=== PATIENT | female | born 1995 | race Caucasian/White ===

== ENCOUNTER 2018-04-19 10:08 | Emergency (ER) | payer BC ==
--- NOTE | 2018-04-19 12:07 | ED ---
Throat Pain/Nasal Congestion - HPI Summary HPI Summary: 21 week patient resents with URI symptoms starting Thursday. Started off with repetitive sneezing which led into nasal discharge with congestion and sore throat. She has a mild intermittent cough which she reports is mostly from sore throat and postnasal drip. Cough is dry. Denies chest pain or shortness of breath. She has some sinus pain and pressure over her maxillary region but no candie headache or neck stiffness. She denies fevers , chills, difficulty breathing or swallowing, abdominal pain, cramping, spotting or vaginal bleeding, nausea, vomiting, diarrhea, rash. Has been snoring at night d/t nasal congestion. Admits she tried an OTC cold medication ( approved on her list of medications) - some relief while on board. Has not taken anything today. Has not had influenza vaccine. Follows w/ [facility]. - History of Current Complaint Chief Complaint: UCRespiratory Time Seen by Provider: 04/19/18 11:46 Hx Obtained From: Patient, Family/Hook Tender - male partner - Allergies/Home Medications Allergies/Adverse Reactions: Allergies Allergy/AdvReac Type Severity Reaction Status Date / Time No Known Allergies Allergy Verified 04/19/18 10:39 Home Medications: Home Medications Pnv No.95/Ferrous Fum/Folic AC [ Vitamin & Minera 28-0.8 mg] 1 tab PO [History] PMH/Surg Hx/FS Hx/Imm Hx Previously Healthy: Yes Endocrine/Hematology History: Reports: Other Endocrine/Hematological Disorders - splenectomy in 2013 Respiratory History: Denies: Hx Asthma - Surgical History Surgery Procedure, Year, and Place: spleenectomy 2013 - Immunization History Immunizations Up to Date: Yes Infectious Disease History: No Infectious Disease History: Denies: Traveled Outside the [place] in Last 30 Days - Social History Occupation: Employed Full-time - [employer] Lives: With Family Alcohol Use: None Hx Substance Use: No Substance Use Type: Reports: None Hx Tobacco Use: Yes - not currently Smoking Status (MU): Former Smoker Review of Systems Positive: Fatigue. Negative: Fever, Chills Eyes: Negative Negative: Drainage, Erythema Positive: Sore Throat, Nasal Discharge Cardiovascular: Negative Positive: Cough. Negative: Shortness Of Breath Gastrointestinal: Negative Positive: no symptoms reported Musculoskeletal: Other - generalized achiness Skin: Negative Neurological: Negative Psychological: Normal All Other Systems Reviewed And Are Negative: Yes Physical Exam Triage Information Reviewed: Yes Vital Signs On Initial Exam: Initial Vitals Temp Pulse Resp BP Pulse Ox 98.4 F 93 18 123/74 99 04/19/18 10:35 04/19/18 10:35 04/19/18 10:35 04/19/18 10:35 04/19/18 10:35 Vital Signs Reviewed: Yes Appearance: Positive: No Pain Distress, Well-Nourished, Ill-Appearing - mild - appears congested w/ mild fatigue - transitioning w/ good energy independently w /o assistance or increased fatigue Skin: Positive: Warm, Skin Color Reflects Adequate Perfusion, Dry Head/Face: Positive: Normal Head/Face Inspection Eyes: Positive: Normal, EOMI, Conjunctiva Clear. Negative: Conjunctiva Inflammed, Discharge ENT: Positive: Hearing grossly normal, Pharyngeal erythema - cobblestoning, Nasal congestion - Lt > Rt - clear mucosa, phlegm, Nasal drainage, TMs normal, Uvula midline. Negative: TM bulging, TM dull, TM red, Tonsillar swelling, Tonsillar exudate, Trismus, Muffled voice, Hoarse voice, Sinus tenderness Dental: Negative: Abscess @ Neck: Positive: Supple, Nontender, No Lymphadenopathy Respiratory/Lung Sounds: Positive: Clear to Auscultation, Breath Sounds Present. Negative: Rales, Rhonchi, Wheezes Cardiovascular: Positive: Normal, RRR, S1, S2. Negative: Murmur, Rub Abdomen Description: Positive: Other: - Bowel Sounds: Positive: Present Musculoskeletal: Positive: Normal, Strength/ROM Intact Neurological: Positive: Normal, Sensory/Motor Intact, Alert, Oriented to Person Place, Time, CN Intact II-III Psychiatric: Positive: Normal Diagnostics - Vital Signs Vital Signs Temp Pulse Resp BP Pulse Ox 04/19/18 10:35 98.4 F 93 18 123/74 99 - Laboratory Lab Statement: Any lab studies that have been ordered have been reviewed, and results considered in the medical decision making process. EENT Course/Dx - Course Course Of Treatment: strep and influenza neg - given h/o splenectomy and status, will initiate anbx and have close f/u w/ [facility] as she does not have a PCP or w/ OB. Reviewed danger s/sx w/ pt and partner who agree w/ plan. Discussed w/ Dr. Alvarez. NOTE: no concerns for miscarriage at this time - Diagnoses Provider Diagnoses: URI (upper respiratory infection), , H/O splenectomy Discharge - Sign-Out/Discharge Documenting (check all that apply): Patient Departure All imaging exams completed and their final reports reviewed: No Studies - Discharge Plan Condition: Stable Disposition: HOME Prescriptions: Azithromycin TAB* [Zithromax TAB (Z-JIM) 250 mg #6 tabs] 2 tab PO .TODAY, THEN 1 DAILY #1 jim Patient Education Materials: Upper Respiratory Infection (ED) Forms: *Work Release Referrals: [facility] [Outside] Additional Instructions: You appear to have a viral URI however given the fact that you do not have a spleen, you are more susceptible to not only viral infections but also bacterial infections. Your strep and influenza tests were negative today however an antibiotic has been prescribed to cover common respiratory bacterial organisms. Please pick this up and start today - complete the course as directed. You may also try the supportive care measures listed below to aid in relief of symptoms and healing process. *If in the meantime you develop fever, chills, headache, neck stiffness, difficulty breathing or swallowing, chest pain, vomiting diarrhea, go to the emergency department. - Billing Disposition and Condition Condition: STABLE Disposition: Home
[2018-04-19] MEDS ORDERED: Acetaminophen TAB* 325 MG PO ONE (12:27)
[2018-04-19 13:14] VITALS: BP 131/67
--- NOTE | 2018-04-20 08:20 | UC ---
Discharge - Sign-Out/Discharge Documenting (check all that apply): Post-Discharge Follow Up All imaging exams completed and their final reports reviewed: No Studies - Discharge Plan Condition: Stable Disposition: HOME Prescriptions: Azithromycin TAB* [Zithromax TAB (Z-JIM) 250 mg #6 tabs] 2 tab PO .TODAY, THEN 1 DAILY #1 jim Patient Education Materials: Upper Respiratory Infection (ED) Forms: *Work Release Referrals: [facility] [Outside] Additional Instructions: You appear to have a viral URI however given the fact that you do not have a spleen, you are more susceptible to not only viral infections but also bacterial infections. Your strep and influenza tests were negative today however an antibiotic has been prescribed to cover common respiratory bacterial organisms. Please pick this up and start today - complete the course as directed. You may also try the supportive care measures listed below to aid in relief of symptoms and healing process. *If in the meantime you develop fever, chills, headache, neck stiffness, difficulty breathing or swallowing, chest pain, vomiting diarrhea, go to the emergency department. - Billing Disposition and Condition Condition: STABLE Disposition: Home
== END 2018-04-19 13:25 | disposition home or self-care (01) ==
LOC: UCEAST 10:08
DX: O99.512 Diseases of the respiratory system complicating pregnancy, second trimester (principal); Z90.81 Acquired absence of spleen; Z87.891 Personal history of nicotine dependence; Z3A.20 20 weeks gestation of pregnancy
CPT/HCPCS: 87651; 99202; A9270-GY; G0463